=== PATIENT | female | born 1995 | race American Indian/Alaskan Native ===

== ENCOUNTER 2017-03-25 11:45 | Emergency (ER) | payer OTHER ==
[2017-03-25 12:19] VITALS: BP 102/71; PULSE 99; TEMP 97.6; O2SAT 97
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
[2017-03-25 13:19] VITALS: RESP 18
--- NOTE | 2017-03-25 16:15 | RAD ---
PROCEDURE: Right Wrist Radiographs. HISTORY: medial contusion COMPARISON: None. FINDINGS: BONES: Normal. No fracture. JOINTS: Normal. No dislocation. SOFT TISSUES: Normal. OTHER FINDINGS: None. IMPRESSION: Normal right wrist radiographs.
== END 2017-03-25 13:19 | disposition home or self-care (01) ==
LOC: C.ER 11:45
DX: S60.211A Contusion of right wrist, initial encounter (principal); Y09 Assault by unspecified means; Y92.9 Unspecified place or not applicable